=== PATIENT | female | born 1970 | race Caucasian/White ===

== ENCOUNTER 2022-06-19 09:30 | Emergency (ER) | payer OTHER ==
[~2022-06-19] VITALS: Ht 172.7 cm; Wt 121.6 kg
--- NOTE | 2022-06-19 09:36 | NUR ---
PT IS IN ROOM #2A. DR WICK EVALUATED THE PT.
[2022-06-19] MEDS ORDERED: ALBUTEROL SULFATE 2.5 MG/3 ML NEBU ONE (09:41)
[2022-06-19] MEDS ORDERED: IV NORMAL SALINE 1000 ML BAG IV ONE (09:45)
[2022-06-19] MEDS ORDERED: ALBUTEROL SULFATE 2.5 MG/3 ML NEBU NEB ONE (09:45)
[2022-06-19] MEDS ORDERED: predniSONE 10 MG TABLET PO ONE (09:45)
[2022-06-19] MEDS ORDERED: MAGNESIUM SULFATE 2 GM in IV DEXTROSE 5% 100 ML IV ONE (09:45)
[2022-06-19] MEDS ORDERED: MAGNESIUM SULFATE/D5W 100 ML ONE (09:47)
[2022-06-19] MEDS ORDERED: predniSONE 20 MG TABLET ONE (09:48)
[2022-06-19] MEDS ORDERED: MAGNESIUM SULFATE 1 GM/2 ML VIAL ONE (09:48)
[2022-06-19] MEDS ORDERED: ALBU2.5V13 NEB (10:00)
[2022-06-19] MEDS ORDERED: AZEL137S7 BNOSTRILS (10:00)
[2022-06-19] MEDS ORDERED: FLUT16SP BNOSTRILS (10:00)
[2022-06-19] MEDS ORDERED: TIOT18CA3 IH (10:00)
[2022-06-19] MEDS ORDERED: BUDE0.5A4 NEB (10:00)
[2022-06-19] MEDS ORDERED: DUPI300S SQ (10:00)
[2022-06-19] MEDS ORDERED: LORA10TA7 PO (10:00)
[2022-06-19] MEDS ORDERED: GABA600T12 PO (10:00)
[2022-06-19] MEDS ORDERED: EPINEPHRINE IM (10:00)
[2022-06-19] MEDS ORDERED: VOLTAREN GEL TP (10:00)
[2022-06-19] MEDS ORDERED: ALBU18HF2 INH (10:00)
[2022-06-19] MEDS ORDERED: IBUP-1957 PO (10:00)
[2022-06-19] MEDS ORDERED: FLUTICASONE FUROATE IH (10:00)
[2022-06-19] MEDS ORDERED: VILANTEROL IH (10:00)
[2022-06-19] MEDS ORDERED: PRED20TA PO (10:36)
--- NOTE | 2022-06-19 11:05 | NUR ---
PT WAS D/C'd TO HOME AFTER DR WICK RE-EVALUATION. D/C INSTRUCTIONS GIVEN TO THE PT BY DR WICK.
[2022-06-19 11:08] VITALS: BP 139/69
== END 2022-06-19 11:11 | disposition home or self-care (01) ==
LOC: ER 09:30
DX: J45.901 Unspecified asthma with (acute) exacerbation (principal); R06.03 Acute respiratory distress
CPT/HCPCS: 99291; 96365; 94644; J7512; J3475 ×2; J7040; A4663